=== PATIENT | female | born 1965 | race African-American/Black ===

== ENCOUNTER 2024-07-04 11:55 | Outpatient (CLI) | payer OTHER, SELFPAY ==
--- NOTE | ~2024-07-04 | XR_ITS ---
XR finger 3rd RT min 2V 07/04/2024 12:11 Indication: Right middle finger pain Procedure: 4 views right third finger Comparison: No prior studies for comparison. Findings: There is mild polyarticular osteoarthritis. No fracture or traumatic malalignment. No signi ficant soft tissue abnormality. No foreign bodies. Impression: 1: Mild polyarticular osteoarthritis. Reviewed, dictated and finalized at location B. Impression: 1: Mild polyarticular osteoarthritis.
== END 2024-07-04 11:56 | disposition home or self-care (01) ==
LOC: MICIMG 12:00
PROVIDERS: PCP Emergency Medicine; Visit Provider Emergency Medicine
DX: M79.644 Pain in right finger(s) (principal)
CPT/HCPCS: 73140

== ENCOUNTER 2025-02-24 14:34 | Outpatient (CLI) | payer OTHER, SELFPAY ==
--- NOTE | ~2025-02-24 | XR_ITS ---
EXAMINATION: XR hip BI wo pelvis DATE: 02/24/2025 15:01 INDICATION: Pain TECHNIQUE: Bilateral hips were obtained. COMPARISON: None. FINDINGS: Bone mineralization and alignment appear within normal limits with no acute or aggressive bony or soft tissue process seen. Lpn pelvic bones somewhat obscured by overlying stool and bowel gas. IMPRESSION: 1. Normal-appearing x-rays of both hips. Comment: For persisting hip pain refractory to conservative therapy, consider correlation with MRI for optimal sensitivity. Reviewed, dictated and finalized at location A. [employer] IMPRESSION: 1. Normal-appearing x-rays of both hips. Comment: For persisting hip pain refractory to conservative therapy, consider c orrelation with MRI for optimal sensitivity.
== END 2025-02-24 14:35 | disposition home or self-care (01) ==
LOC: MICIMG 14:37
PROVIDERS: PCP Emergency Medicine; Visit Provider Emergency Medicine
DX: M25.551 Pain in right hip (principal); M25.552 Pain in left hip
CPT/HCPCS: 73521